=== PATIENT | male | born 1980 | race Caucasian/White ===

== ENCOUNTER 2018-11-12 15:46 | Observation (INO) ==
[2018-11-12] MEDS ORDERED: 0.9 % Sodium Chloride 1,000 ML IVC ONE (17:21)
[2018-11-12] MEDS ORDERED: Ondansetron 4 MG/2 ML VIAL IVP ONE (17:21)
[2018-11-12] MEDS ORDERED: Isovue-370 500 ML BOTTLE IVP ONE (17:23)
[2018-11-12] MEDS ORDERED: Pantoprazole 40 MG VIAL IVP ONE (17:24)
--- NOTE | 2018-11-12 17:29 | Emergency Department Note ---
Disposition Clinical Impression: Nausea and vomiting Qualifiers: Vomiting type: unspecified Vomiting Intractability: unspecified Qualified Code(s): R11.2 - Nausea with vomiting, unspecified Abdominal pain Qualifiers: Abdominal location: unspecified location Qualified Code(s): R10.9 - Unspecified abdominal pain Disposition: Admitted As Inpatient Condition: Fair Referrals: Rafael Emmanuel [Primary Care Provider] - Forms: ED Satisfaction Letter Time of Disposition: 19:26 Nausea/Vomiting/Diarrhea HPI - General Chief complaint: ED Nausea/Vomiting/Diarrhea Stated complaint: Nausea for months Time Seen by Provider: 11/12/18 16:59 Source: patient, family Mode of arrival: ambulatory Limitations: no limitations Nursing Notes Reviewed: Yes Vital Signs Reviewed: Yes - History of Present Illness HPI Narrative: 38-year-old male with a long-standing history of nausea vomiting and abdominal pain presents for evaluation for admission. Patient states he was sent in by the GI doctor for admission for anticipated upper endoscopy tomorrow. Patient states that he was having nausea vomiting now chronically for over 10 months. States it is worsened in the past month. States he has had unintentional weight loss where he is losing approximately a pound a week over the last few weeks. Patient states he feels nauseous all the time. Patient able to keep some foods and liquids down but however continues to experience nausea. Denies any fevers. Denies any chest pain or shortness of breath. States he was seeing pulmonary for a lung lesion with no current workup until he is able to get his nausea vomiting under control. Patient's also had night sweats. Patient has been see ing a nurse practitioner in [place] who felt that his symptoms are more related to anxiety and depression. Patient has not been given any antibiotics. Patient also notes some mucousy stool without blood. Diffuse abdominal cramping - Related Data Home Medications Medication Instructions Recorded Confirmed No Known Home Drugs 11/12/18 11/12/18 Allergies Allergy/AdvReac Type Severity Reaction Status Date / Time No Known Allergies Allergy Verified 11/12/18 15:59 All systems ED: reviewed and negative except as stated. Constitutional: Denies: fever Cardiovascular: Denies: chest pain Respiratory: Reports: cough Gastrointestinal: Reports: abdominal pain, nausea, vomiting, diarrhea Past Medical History - Past Medical History Source: patient Medical history: Reports: other Psychiatric history: Reports: no psych history - Social History Smoking Status: Current every day smoker Smokeless Tobacco Status: No Alcohol use: Reports: none Drug use: Reports: none Physical Exam - General Limitations: no limitations General appearance: alert, in no apparent distress, cachectic - Head Head exam: atraumatic, normocephalic, normal inspection - Eye Eye exam: Present: normal appearance - ENT ENT exam: normal exam, mucous membranes dry - Neck Neck exam: Present: normal inspection - Chest Chest inspection: Present: normal inspection - Respiratory Respiratory exam: Present: normal lung sounds bilaterally. Absent: respiratory distress - Cardiovascular Cardiovascular exam: Present: regular rate, normal rhythm - Abdominal Exam Abdominal exam: Present: soft, Non-Tender. Absent: guarding, rebound - Extremities Exam Extremities exam: Present: normal inspection. Absent: pedal edema - Back Exam Back exam: Present: normal inspection - Neurological Exam Neurological exam: Present: alert, oriented X3, CN II-XII intact - Skin Skin exam: Present: warm, dry, intact, normal color Course Course Narrative: Patient appears malnourished. Concerns for malignancy. Patient with CT of the abdomen pelvis with IV contrast. Patient will also get basic labs antiemetics and IV fluids. Patient will likely be admitted for malnutrition and intractable nausea vomiting. Vital Signs Temperature 98.6 F 11/12/18 15:58 Pulse Rate 73 11/12/18 15:58 Respiratory Rate 16 11/12/18 15:58 Blood Pressure 125/83 11/12/18 15:58 O2 Sat by Pulse Oximetry 95 11/12/18 15:58 Temperature 98.6 F 11/12/18 15:58 Pulse Rate 77 11/12/18 19:11 Respiratory Rate 20 11/12/18 19:11 Blood Pressure 122/80 11/12/18 19:11 O2 Sat by Pulse Oximetry 100 11/12/18 19:11 Oxygen Delivery Oxygen Delivery Room Air Nausea/Vomiting/Diarrhea - MDM Narrative Medical decision making narrative: Patient presented for concerns of nausea vomiting and malnourishment. Patient was sent in by GI office for admission for anticipated endoscopy tomorrow. I attempted to talk with the GI office however it was after hours and was unable to get a hold of them. I did speak with acute care surgery services who states that they would recommend admission with GI consult. Patient CT scan shows no acute abnormalities. Patient was treated with IV fluids and antiemetics. - Lab Data Lab results reviewed: Yes I reviewed the patient's lab results. Result diagrams: 11/12/18 17:35 11/12/18 17:35 Lab Results 11/12/18 11/12/18 11/12/18 Range/Units 17:35 17:35 18:30 WBC 15.4 H (4.3-11.1) K/mcL RBC 4.95 (4.19-5.50) M/mcL Hgb 15.7 (12.9-16.9) g/dL Hct 44.1 (37.5-50.1) % MCV 89.1 (83.0-100.0) fL MCH 31.7 (28.0-33.3) pg MCHC 35.6 H (31.6-35.5) g/dL RDW 13.4 (11.5-14.5) % Plt Count 361 (140-400) K/mcL MPV 9.4 (9.4-12.4) fL Immature Gran % 0.4 (0-4) % Seg Neutrophils % 64.4 % Lymphocytes % 27.4 % Monocytes % 6.2 % Eosinophils % 1.0 % Basophils % 0.6 % Neutrophils # 10.0 H (1.6-8.9) K/mcL Lymphocytes # 4.2 (0.6-4.6) K/mcL Monocytes # 1.0 (0.0-1.3) K/mcL Eosinophils # 0.2 (0.0-0.6) K/mcL Basophils # 0.1 (0.0-0.2) K/mcL Sodium 139 (136-145) mEq/L Potassium 4.1 (3.5-5.1) mEq/L Chloride 102 (98-107) mEq/L Carbon Dioxide 29 (23-29) mEq/L BUN 10 (6-20) mg/dL Creatinine 0.84 (0.70-1.30) mg/dL Est GFR ( Amer) > 60 (> 60) Est GFR (Non-Af Amer) > 60 (> 60) BUN/Creatinine Ratio 12 (6-26) Glucose 100 (70-105) mg/dL Calculated Osmolality 287 (280-300) Calcium 10.0 (8.6-10.3) mg/dL Phosphorus 3.7 (2.7-4.5) mg/dL Magnesium 1.9 (1.6-2.6) mg/dL Total Bilirubin 0.7 (0.3-1.0) mg/dL Direct Bilirubin 0.1 (0.0-0.2) mg/dL Indirect Bilirubin 0.6 (0.0-1.2) mg/dL AST 15 (13-39) Units/L ALT 14 (7-52) Units/L Alkaline Phosphatase 50 (34-104) Units/L Serum Total Protein 7.6 (6.4-8.9) g/dL Albumin 4.7 (3.5-5.7) g/dL Globulin 2.9 (2.4-3.5) g/dL Albumin/Globulin Ratio 1.6 (1.1-2.2) Lipase 23 (11-82) Units/L Urine Color Yellow (Yellow) Urine Clarity Clear (Clear) Urine pH 6.5 (5.0-8.0) pH Units Ur Specific [place] 1.014 (1.010-1.025) Urine Protein Negative (Neg-Trace) mg/dL Urine Glucose (UA) Normal (Normal) mg/dL Urine Ketones Negative (Negative) mg/dL Urine Blood Negative (Negative) Urine Nitrite Negative (Negative) Urine Bilirubin Negative (Negative) Urine Urobilinogen Normal (Normal) mg/dL Ur Leukocyte Esterase Negative (Negative) Ur Culture Indicated? NO (NO) - Radiology Data Radiology results reviewed: Yes I reviewed the patient's radiology results. Abdomen/Pelvis CT 11/12/18 17:23 IMPRESSION: No acute abdominopelvic findings. Specifically, normal distal esophagus, stomach and proximal bowel without evidence of obstruction or apparent wall thickening. RECOMMENDATIONS: If reported CT chest can be obtained, a comparison can be made. D/ / 11/12/2018 18:54:53 Wade Slater / wendy Interpreting Provider: Wade Slater - EKG Data EKG attestation: Yes I reviewed and interpreted this EKG. EKG shows normal: sinus rhythm Rate: normal Rhythm: NSR [place]/QRS: normal T wave inversions noted in: aVR, v1 Interpretation: no acute changes S.B.A.R. - S.B.A.R. Situation: Demographics Background: Presenting Complaint Assessment: Vital Signs, Course and respsone to treatment, Patient/Family Expectation Recommendation: Barrier(s) to disposition, Recommendation based on pending studies, treatments, or consults Anastacia Report Given to: Dr. Savannah Galaviz Repor Time: 19:24
--- NOTE | 2018-11-12 17:30 | Emergency Department Note ---
Disposition Clinical Impression: Nausea and vomiting, Abdominal pain Disposition: Admitted As Inpatient Condition: Fair General Adult HPI - General Chief complaint: ED Nausea/Vomiting/Diarrhea Stated complaint: Nausea for months Time Seen by Provider: 11/12/18 16:59 Source: patient, family Limitations: no limitations - History of Present Illness Pain Scale: 6 - Related Data Home Medications Medication Instructions Recorded Confirmed No Known Home Drugs 11/12/18 11/12/18 Allergies Allergy/AdvReac Type Severity Reaction Status Date / Time No Known Allergies Allergy Verified 11/12/18 15:59 Past Medical History - Past Medical History Medical history: Reports: other Psychiatric history: Reports: no psych history - Social History Smoking Status: Current every day smoker Smokeless Tobacco Status: No Alcohol use: Reports: none Drug use: Reports: none Physical Exam - General Limitations: no limitations General appearance: alert, in no apparent distress Course Vital Signs Temperature 98.6 F 11/12/18 15:58 Pulse Rate 73 11/12/18 15:58 Respiratory Rate 16 11/12/18 15:58 Blood Pressure 125/83 11/12/18 15:58 O2 Sat by Pulse Oximetry 95 11/12/18 15:58 Temperature 98.3 F 11/13/18 09:52 Pulse Rate 68 11/13/18 09:52 Respiratory Rate 18 11/13/18 09:52 Blood Pressure 108/68 11/13/18 09:52 O2 Sat by Pulse Oximetry 96 11/13/18 09:52 Oxygen Delivery Oxygen Delivery Room Air Medical Decision Making - Lab Data Result diagrams: 11/13/18 04:35 11/13/18 04:35 Lab Results 11/12/18 11/12/18 11/12/18 Range/Units 17:35 17:35 18:30 WBC 15.4 H (4.3-11.1) K/mcL RBC 4.95 (4.19-5.50) M/mcL Hgb 15.7 (12.9-16.9) g/dL Hct 44.1 (37.5-50.1) % MCV 89.1 (83.0-100.0) fL MCH 31.7 (28.0-33.3) pg MCHC 35.6 H (31.6-35.5) g/dL RDW 13.4 (11.5-14.5) % Plt Count 361 (140-400) K/mcL MPV 9.4 (9.4-12.4) fL Immature Gran % 0.4 (0-4) % Seg Neutrophils % 64.4 % Lymphocytes % 27.4 % Monocytes % 6.2 % Eosinophils % 1.0 % Basophils % 0.6 % Neutrophils # 10.0 H (1.6-8.9) K/mcL Lymphocytes # 4.2 (0.6-4.6) K/mcL Monocytes # 1.0 (0.0-1.3) K/mcL Eosinophils # 0.2 (0.0-0.6) K/mcL Basophils # 0.1 (0.0-0.2) K/mcL Sodium 139 (136-145) mEq/L Potassium 4.1 (3.5-5.1) mEq/L Chloride 102 (98-107) mEq/L Carbon Dioxide 29 (23-29) mEq/L BUN 10 (6-20) mg/dL Creatinine 0.84 (0.70-1.30) mg/dL Est GFR ( Amer) > 60 (> 60) Est GFR (Non-Af Amer) > 60 (> 60) BUN/Creatinine Ratio 12 (6-26) Glucose 100 (70-105) mg/dL Calculated Osmolality 287 (280-300) Calcium 10.0 (8.6-10.3) mg/dL Phosphorus 3.7 (2.7-4.5) mg/dL Magnesium 1.9 (1.6-2.6) mg/dL Total Bilirubin 0.7 (0.3-1.0) mg/dL Direct Bilirubin 0.1 (0.0-0.2) mg/dL Indirect Bilirubin 0.6 (0.0-1.2) mg/dL AST 15 (13-39) Units/L ALT 14 (7-52) Units/L Alkaline Phosphatase 50 (34-104) Units/L Serum Total Protein 7.6 (6.4-8.9) g/dL Albumin 4.7 (3.5-5.7) g/dL Globulin 2.9 (2.4-3.5) g/dL Albumin/Globulin Ratio 1.6 (1.1-2.2) Lipase 23 (11-82) Units/L Urine Color Yellow (Yellow) Urine Clarity Clear (Clear) Urine pH 6.5 (5.0-8.0) pH Units Ur Specific [place] 1.014 (1.010-1.025) Urine Protein Negative (Neg-Trace) mg/dL Urine Glucose (UA) Normal (Normal) mg/dL Urine Ketones Negative (Negative) mg/dL Urine Blood Negative (Negative) Urine Nitrite Negative (Negative) Urine Bilirubin Negative (Negative) Urine Urobilinogen Normal (Normal) mg/dL Ur Leukocyte Esterase Negative (Negative) Ur Culture Indicated? NO (NO) Attestation Statement - Attestation Attestation: I examined this patient and my medical decision-making was reviewed with the Resident Physician. I agree with the documented findings, disposition and treatment plan as described except to the extent set forth below. [id number] time provided Patient arrives with chronic symptoms. It was recommended by the GI specialist that the patient be admitted for planned endoscopy. He appears thin and somewhat frail appearing on exam.
[2018-11-12 17:52] LABS: Basophils # 0.1 K/mcL (0.0-0.2); Basophils % 0.6 %; Eosinophils # 0.2 K/mcL (0.0-0.6); Hematocrit 44.1 % (37.5-50.1); Hemoglobin 15.7 g/dL (12.9-16.9); Immature Granulocytes % 0.4 % (0-4); Lymphocytes # 4.2 K/mcL (0.6-4.6); Lymphocytes % 27.4 %; Mean Corpuscular HGB Conc 35.6 g/dL (31.6-35.5); Mean Corpuscular Hemoglobin 31.7 pg (28.0-33.3); Mean Corpuscular Volume 89.1 fL (83.0-100.0); Mean Platelet Volume 9.4 fL (9.4-12.4); Monocytes % 6.2 %; Platelet Count 361 K/mcL (140-400); Red Blood Count 4.95 M/mcL (4.19-5.50); Red Cell Distribution Width 13.4 % (11.5-14.5); Segmented Neutrophils % 64.4 %
[2018-11-12 18:12] LABS: Alanine Aminotransferase 14 Units/L (7-52); Albumin 4.7 g/dL (3.5-5.7); Albumin/Globulin Ratio 1.6 (1.1-2.2); Alkaline Phosphatase 50 Units/L (34-104); Aspartate Amino Transferase 15 Units/L (13-39); BUN/Creatinine Ratio 12 (6-26); Bilirubin,Direct 0.1 mg/dL (0.0-0.2); Bilirubin,Indirect 0.6 mg/dL (0.0-1.2); Bilirubin,Total 0.7 mg/dL (0.3-1.0); Blood Urea Nitrogen 10 mg/dL (6-20); Carbon Dioxide 29 mEq/L (23-29); Chloride 102 mEq/L (98-107); Globulin 2.9 g/dL (2.4-3.5); Glucose 100 mg/dL (70-105); Lipase 23 Units/L (11-82); Magnesium 1.9 mg/dL (1.6-2.6); Osmolality,Calculated 287 (280-300); Phosphorous 3.7 mg/dL (2.7-4.5); Potassium 4.1 mEq/L (3.5-5.1); Sodium 139 mEq/L (136-145); Total Protein 7.6 g/dL (6.4-8.9); eGFR For Non-African Americans > 60 (> 60)
[2018-11-12 19:00] LABS: Bilirubin,Urine Negative (Negative); Blood,Urine Negative (Negative); Clarity,Urine Clear (Clear); Color,Urine Yellow (Yellow); Glucose,Urine (UA) Normal (Normal); Ketones,Urine Negative (Negative); Leukocyte Esterase,Urine Negative (Negative); Nitrite,Urine Negative (Negative); PH,Urine 6.5 pH Units (5.0-8.0); Protein,Urine Negative (Neg-Trace); Specific Gravity,Urine 1.014 (1.010-1.025); Urobilinogen,Urine Normal (Normal)
[2018-11-12] MEDS ORDERED: D5% in 0.45% NACL 1,000 ML IVC SCH (19:30)
[2018-11-12] MEDS ORDERED: Naloxone 0.4 MG/ML INJ IVP PRN (20:18)
[2018-11-12] MEDS ORDERED: Ondansetron 4 MG/2 ML VIAL IVP PRN (20:18)
[2018-11-12 22:18] LABS: Amphetamine Screen,Urine Negative ng/mL (Cutoff=1000); Barbiturate Screen,Urine Negative ng/mL (Cutoff=200); Benzodiazepines Screen,Urine Negative ng/mL (Cutoff=200); Cannabinoid Screen,Urine Positive ng/mL (Cutoff = 50); Cocaine Screen,Urine Negative ng/mL (Cutoff= 300); Opiate Screen,Urine Negative ng/mL (Cutoff=300); Phencyclidine Screen,Urine Negative ng/mL (Cutoff=25)
--- NOTE | 2018-11-13 03:39 | Internal Med History&Physical ---
Date of Encounter: 11/13/18 Time of Encounter: 03:31 Internal Medicine - H&P: HPI Chief complaint: Intractable nausea History of present illness: Mr. CHAVEZ is a 38 year old male with no significant past medical history who was referred to the ED by Dr. Garcia with gastroenterology due to chronic intractable nausea and plan for upper endoscopy. Patient reports that his nausea has been ongoing for the past 10 months. Reports decreased appetite and states that he has been losing 1 pound a week. Reports feeling nauseous all the time. He is able to keep food down when he forces himself to eat. Reports no symptoms of epigastric pain, early satiety, bloating, acid reflux, or diarrhea. Patient currently smokes a pack and half a day. Denies any marijuana use. Not currently on any medications. On arrival patient was found to be afebrile, hemodynamically stable. Labs were only notable for a leukocytosis of 15.4. Patient states that he always has an elevated white blood cell count when they check it. Chemistry was otherwise normal. U tox was obtained which was positive for marijuana. UA was otherwise normal. Will prep patient for possible upper endoscopy in the morning. Past Med Surg Social Fam HX - Past Medical History Medical history: other Additional medical history: Pulmonary nodule Psychiatric history: no psych history - Past Surgical History Additional surgical history: dental procedure - Social History Smoking Status: Current every day smoker Packs per day: 2 Smokeless Tobacco Status: No Alcohol use: none Drug use: none - Additional Family History Additional family history: Noncontributory Internal Medicine - H&P: Meds No Known Home Drugs 11/12/18 [History] Allergy/AdvReac Type Severity Reaction Status Date / Time No Known Allergies Allergy Verified 11/12/18 15:59 All Systems PM: A 10-system review of systems was performed and is negative for pertinent findings except as documented above in the HPI. - Constitutional Constitutional: no chills, no fever(s), no night sweats - EENT Eyes: no change in vision, no discharge, no pain, no photophobia Ears: no ear discharge, no ear pain, no tinnitus Nose, mouth and throat: no dysphagia, no nasal discharge, no neck pain, no sore throat - Cardiovascular Cardiovascular ROS IM: no chest pain, no diaphoresis, no dyspnea, no lightheadedness, no palpitations, no syncope - Respiratory Respiratory: no cough, no dyspnea, no wheezing, no excessive phlegm production - Gastrointestinal Gastrointestinal: no abdominal pain, no diarrhea, no hematemesis, no hematochezia, no melena, no nausea, no vomiting - Musculoskeletal Musculoskeletal ROS IM: no numbness, no tingling - Integumentary Integumentary IM: no rash, no unusual bruising - Neurological Neurological ROS: no confusion, no convulsions, no focal weakness, no numbness, no tingling, no tremor(s) - Hematologic/Lymphatic Hematologic/Lymphatic: no easy bruising - Constitutional Vitals: Temp Pulse Resp BP Pulse Ox 98.5 F 66 14 105/66 96 11/13/18 00:51 11/13/18 00:51 11/13/18 00:51 11/13/18 00:51 11/13/18 00:51 Exam: General: Alert and oriented 3 lying in bed in no acute distress Skin:Normal color, no rash, no lesions. HEENT:EOM, pupils equal, round and reactive. Cardiovascular:Normal S1 & S2, no rubs, murmurs or gallops. No JVD. Pulse regular. Lungs:Normal breath sounds, no wheezes or crackles. Abdomen:Soft, non-tender, no rigidity. Extremities:No deformity, no edema or tenderness, no joint swelling or clubbing. Neurological:Normal cognition and motor skills. Pulses:Carotid and radial pulses normal +2. Rest of the physical exam is non contributory Internal Med - H&P Results - Labs CBC & Chem 7: 11/13/18 04:35 11/13/18 04:35 Labs: Short CBC 11/12/18 Range/Units 17:35 WBC 15.4 H (4.3-11.1) K/mcL Hgb 15.7 (12.9-16.9) g/dL Hct 44.1 (37.5-50.1) % Plt Count 361 (140-400) K/mcL Neutrophils # 10.0 H (1.6-8.9) K/mcL BMP 11/12/18 17:35 Sodium 139 Potassium 4.1 Chloride 102 Carbon Dioxide 29 BUN 10 Creatinine 0.84 Glucose 100 Calcium 10.0 Liver Function 11/12/18 Range/Units 17:35 Total Bilirubin 0.7 (0.3-1.0) mg/dL Direct Bilirubin 0.1 (0.0-0.2) mg/dL AST 15 (13-39) Units/L ALT 14 (7-52) Units/L Alkaline Phosphatase 50 (34-104) Units/L Albumin 4.7 (3.5-5.7) g/dL Urine 11/12/18 Range/Units 18:30 Urine Color Yellow (Yellow) Urine Clarity Clear (Clear) Urine pH 6.5 (5.0-8.0) pH Units Ur Specific [place] 1.014 (1.010-1.025) Urine Protein Negative (Neg-Trace) mg/dL Urine Glucose (UA) Normal (Normal) mg/dL - Impressions ITS Impressions Abdomen/Pelvis CT 11/12/18 17:23 IMPRESSION: No acute abdominopelvic findings. Specifically, normal distal esophagus, stomach and proximal bowel without evidence of obstruction or apparent wall thickening. RECOMMENDATIONS: If reported CT chest can be obtained, a comparison can be made. D/ / 11/12/2018 18:54:53 Wade Slater / wendy Interpreting Provider: Wade Slater - Assessment and Plan (1) Nausea Current Visit: Yes Status: Acute Assessment and plan: Patient presents with 10 month history of intractable nausea without vomiting associated with loss of appetite and decreased by mouth intake. Referred here by Dr. Garcia for planned upper endoscopy. Patient denies any abdominal pain per se. No reports of acid reflux to suggest GERD. Denies early satiety, bloating, or diarrhea suggestive of a gastric motility pathology. Patient denied marijuana use however you toxicology came back positive for marijuana. Nonetheless less likely to be cannabinoid hyperemesis syndrome given the absence f cyclical vomiting. -We will keep patient NPO -Supportive fluids -Protonix -Antiemetics PRN for nausea -Plan for upper endoscopy in the morning (2) Tobacco use Current Visit: Yes Status: Acute Assessment and plan: Patient has been smoking a pack and a half of cigarettes for the past 17 years. Also patient on smoking cessation.. (3) Neutrophilic leukocytosis Current Visit: Yes Status: Acute Assessment and plan: Patient presents with a neutrophilic leukocytosis of 15.4. No evidence of an infection based on history and clinical findings. Patient states that his WBC is always high when they check it. We will monitor for now.. (4) DVT prophylaxis Current Visit: Yes Status: Acute Assessment and plan: The cutaneous heparin - Time Spent With Patient Total time spent is greater than 50% in coordination of care (as documented) at patient's floor/unit and/or counseling patient:
[2018-11-13 04:58] LABS: Basophils # 0.1 K/mcL (0.0-0.2); Basophils % 0.8 %; Eosinophils # 0.2 K/mcL (0.0-0.6); Immature Granulocytes % 0.3 % (0-4); Lymphocytes # 3.7 K/mcL (0.6-4.6); Lymphocytes % 31.3 %; Mean Corpuscular HGB Conc 33.7 g/dL (31.6-35.5); Mean Corpuscular Hemoglobin 30.4 pg (28.0-33.3); Mean Corpuscular Volume 90.3 fL (83.0-100.0); Mean Platelet Volume 9.3 fL (9.4-12.4); Monocytes # 0.9 K/mcL (0.0-1.3); Monocytes % 7.4 %; Neutrophils # 6.8 K/mcL (1.6-8.9); Platelet Count 318 K/mcL (140-400); Red Blood Count 4.54 M/mcL (4.19-5.50); Red Cell Distribution Width 13.6 % (11.5-14.5); Segmented Neutrophils % 58.2 %
[2018-11-13 05:00] LABS: Hemoglobin 13.8 g/dL (12.9-16.9)
[2018-11-13 05:10] LABS: INR 1.1; Prothrombin Time 12.2 Seconds (9.4-12.1)
[2018-11-13 05:13] LABS: Activated Partial Thrombo Time 38.6 Seconds (26.0-36.0)
[2018-11-13 05:18] LABS: Alanine Aminotransferase 11 Units/L (7-52); Albumin 3.8 g/dL (3.5-5.7); Albumin/Globulin Ratio 1.5 (1.1-2.2); Alkaline Phosphatase 42 Units/L (34-104); Aspartate Amino Transferase 13 Units/L (13-39); BUN/Creatinine Ratio 8 (6-26); Bilirubin,Total 0.8 mg/dL (0.3-1.0); Blood Urea Nitrogen 7 mg/dL (6-20); Calcium 9.3 mg/dL (8.6-10.3); Carbon Dioxide 29 mEq/L (23-29); Chloride 109 mEq/L (98-107); Globulin 2.6 g/dL (2.4-3.5); Glucose 110 mg/dL (70-105); Osmolality,Calculated 287 (280-300); Phosphorous 3.5 mg/dL (2.7-4.5); Potassium 4.1 mEq/L (3.5-5.1); Sodium 139 mEq/L (136-145); Total Protein 6.4 g/dL (6.4-8.9); eGFR For Non-African Americans > 60 (> 60)
[2018-11-13] MEDS ORDERED: Pantoprazole 40 MG VIAL IVP SCH (06:00)
[2018-11-13] MEDS ORDERED: *HR* Heparin 5,000 UNIT/ML VIAL SQ SCH (06:00)
[2018-11-13 06:49] LABS: Estimated Average Glucose 120 mg/dl; Hemoglobin A1C 5.8 %
[2018-11-13] MEDS ORDERED: Ondansetron 4 MG/2 ML VIAL IVP SCH (08:09)
[2018-11-13] MEDS ORDERED: Nicotine 21 MG PATCH.TD24 TD SCH (09:00)
--- NOTE | 2018-11-13 11:00 | Event Note ---
Date of Encounter: 11/13/18 Time of Encounter: 09:15 H&P reviewed. Patient with no significant past history other than marijuana use was admitted for chronic intractable nausea. She is physically vomiting syndrome associated with marijuana but as per GI recommendation, rule out anatomical pathology with EGD today. Will administer zofran scheduled to control his nausea. If his symptoms remain relatively controlled on scheduled zofran and EGD findings unremarkable, he will likely be discharged home tomorrow.
--- NOTE | 2018-11-13 11:57 | Gastroenterology Consult Note ---
Date of Encounter: 11/15/18 Time of Encounter: 09:15 - Assessment and plan (1) Nausea and vomiting Status: Acute Assessment and plan: Will check EGD to rule out esophagitis, PUD, gastritis and duodenitis. Continue PPI. Pt should abstain from any marijuana use. Qualifiers: Vomiting type: cyclical vomiting Vomiting Intractability: non-intractable Qualified Code(s): G43.A0 - Cyclical vomiting, not intractable (2) Abdominal pain Status: Acute Qualifiers: Abdominal location: generalized Qualified Code(s): R10.84 - Generalized abdominal pain - Time Spent With Patient Total time spent is greater than 50% in coordination of care (as documented) at patient's floor/unit and/or counseling patient: GI History of Present Illness - Data of Consult Patient: known to practice within the last 3 years Consult date: 11/13/18 Requesting Physician: Oleg Dickens MD - Consult Narrative Reason for consult: nausea and weight loss History of present illness: Mr. CHAVEZ is a 38 year old male with no significant past medical history who was seen by Dr. Garcia in the office yesterday with chronic intractable nausea. He states has been ongoing for 10 months. He reports very poor appetite and has nausea anytime he eats. He reports occasional diarrhea, denies constipation. He reports increased belching and acid reflux. Reports decreased appetite and states that he has been losing 1 pound a week. Reports feeling nauseous all the time. He is able to keep food down when he forces himself to eat. He denies epigastric pain, early satiety, bloating. Patient currently smokes a pack and half a day. Denies any marijuana use. Not currently on any medications. On arrival patient was found to be afebrile, hemodynamically stable. Labs were only notable for a leukocytosis of 15.4. Patient states that he always has an elevated white blood cell count when they check it. Chemistry was otherwise normal. U tox was obtained which was positive for marijuana. UA was otherwise normal. NSAIDS: none Anticoagulants: heparin SQ EGD and colonoscopy: Denies Past Med Surg Social Fam HX - Past Medical History Medical history: other Additional medical history: Pulmonary nodule Psychiatric history: no psych history - Past Surgical History Additional surgical history: dental procedure - Social History Smoking Status: Current every day smoker Packs per day: 2 Smokeless Tobacco Status: No Alcohol use: none Drug use: none Review of Systems: GI: as per [facility] GENERAL: denies fever, has some chills EYES: denies yellow discoloration ENT: denies pain with swallowing or difficulty swallowing CARDIO: denies chest pain, palpitations RESP: No Shortness of breath with exertion : denies change in color of urine NEURO: weakness HEME: Denies any bruising MS: denies joint pain, joint swelling or back pain. DERM: denies rash or itching PSYCH: Denies history of anxiety or depression - Constitutional Vitals: Temp Pulse Resp BP Pulse Ox 98.3 F 68 18 108/68 96 11/13/18 09:52 11/13/18 09:52 11/13/18 09:52 11/13/18 09:52 11/13/18 09:52 Exam: CONSTITUTIONAL:alert, no acute distress.HEAD:normocephalic, bitemporal wasting noted.EYES:no jaundice.NECK:no obvious swelling.HEART:regular rate and rhythm, no murmurs.LUNGS:bilateral good air entry.ABDOMEN:non distended, soft, tender epigastric area, no masses pulpable, no organomegaly.RECTAL EXAM:Deferred.EXTREMITIES:no clubbing, cyanosis or edema.SKIN: pallor notedno stigmata of chronic liver disease.NEUROLOGIC:no obvious focal defect. Results - Labs CBC & Chem 7: 11/13/18 04:35 11/13/18 04:35 Labs: Last Result 11/13/18 04:35 Calcium 9.3 Entire Visit 11/13/18 11/13/18 11/13/18 04:35 04:35 04:35 Hgb 13.8 D Hct 41.0 PT 12.2 H Total Bilirubin 0.8 AST 13 ALT 11 - ABG ABG results: PT/INR, D-dimer PT 12.2 Seconds (9.4-12.1) H 11/13/18 04:35 - Impressions Impressions Abdomen/Pelvis CT 11/12/18 17:23 IMPRESSION: No acute abdominopelvic findings. Specifically, normal distal esophagus, stomach and proximal bowel without evidence of obstruction or apparent wall thickening. RECOMMENDATIONS: If reported CT chest can be obtained, a comparison can be made. D/ /12/2018 18:54:53 Wade Slater / wendy Interpreting Provider: Wade Slater Consult Discharge Plan - Plan Instructions: Upper Gastrointestinal Endoscopy (DC) Referrals: Zach Garcia MD [Partnered Physician] - (Web request entered. Office will call with date and time of appointment.) Rafael Emmanuel [Primary Care Provider] - (Web request entered. Office will call with date and time of appointment.) Prescriptions: Nicotine Patch [Nicoderm] 21 mg TD DAILY #21 patch.td24 Omeprazole [PriLOSEC] 40 mg PO DAILY #30 cap Ondansetron ODT [Zofran ODT] 4 mg SL Q6HR PRN #20 tab.rapdis PRN Reason: Nausea
[2018-11-13] MEDS ORDERED: *HR* Propofol 200 MG/20 ML VIAL IVP ONE (13:24)
--- NOTE | 2018-11-13 13:34 | Anesthesia Evaluation PreOp ---
Date of Encounter: 11/13/18 Time of Encounter: 14:18 - Past History Planned Operation: EGD Cardiac History: Denies any Significant Hx Pulmonary History: Smoker (25 years), Other (pulmonary nodules) [employer] History: Denies Any Significant HX Other Medical History: Denies Any Significant HX Anesthesia History: Past Anesthesia (no prior GA) Alcohol Use: none Drug use: none Medications and Allergies No Known Home Drugs 11/12/18 [History] Allergy/AdvReac Type Severity Reaction Status Date / Time No Known Allergies Allergy Verified 11/12/18 15:59 - Meds/Allergy Pre-op Review Medications Reviewed: Yes Allergies Reviewed: Yes Beta Blockers on Current Med List: No Anesthesia Results - Labs 11/13/18 04:35 11/13/18 04:35 - Imaging EKG: report reviewed (11/12/2018 sinus rhythm) Anesthesia Exam Vital Signs/O2 Sat, Most Current Temp Pulse Resp BP Pulse Ox 98.3 F 68 18 108/68 96 11/13/18 09:52 11/13/18 09:52 11/13/18 09:52 11/13/18 09:52 11/13/18 09:52 Height: 5'9''/1.75m Weight: 129 lbs/58.8 kg NPO (# of Hours): 8 Pain Scale: 0 Pain Scale Used: Numeric (1 - 10) - HEENT Pupil (Motor): EOMI Mallampati: II Teeth: Edentulous Denture Type: Upper: Complete, Lower: Complete Oral Opening: Greater than 3 - [employer] LOC: Oriented [employer] Motor: Normal RUE, Normal LUE, Normal RLE, Normal LLE, Normal Face [employer] Sensory: Normal: RUE, LUE, RLE, LLE, Face - Cardiac Rhythm: Regular Murmur: None - Pulmonary Breath Sounds: bilateral Clear Respiratory Effort: Symmetrical Anesthesia Assess/Plan ASA Score: 2 Level of consciousness: Cooperative, Oriented, Tranquil Anesthetic Plan: MAC Monitoring Plan: Standard Monitors
--- NOTE | 2018-11-13 14:08 | Electrocardiograph Report ---
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
[2018-11-13 14:26] VITALS: BP 145/76
--- NOTE | 2018-11-13 16:16 | Discharge Summary ---
- NOTES TO OUTPATIENT PROVIDER Notes to Outpatient Provider: Follow-up with PCP and GI Orders not resulted at time of discharge: Pending orders 11/12/18 17:35 Tissue Transglutaminase Ab,IgA Stat 11/13/18 14:48 Surgical Pathology [PTH] Routine 11/14/18 04:00 Basic Metabolic Panel AM 0400 Complete Blood Count [HEME] AM 0400 Date of Encounter: 11/13/18 Time of Encounter: 16:00 - Discharge Diagnosis (1) Nausea Priority: Primary Status: Acute (2) DVT prophylaxis Priority: Secondary Status: Acute (3) Tobacco use Priority: Secondary Status: Acute (4) Neutrophilic leukocytosis Priority: Secondary Status: Acute Hospital course: Mr. CHAVEZ is a 38 year old male with history of marijuana abuse was admitted for intractable nausea/vomiting. Was admitted per GI recommendation and underwent EGD on 11/13 showed mild Schatzki ring which was dilated and biopsied. He will be discharged home on PPI with GI follow up outpatient. Discharge discussed with: patient, nurse, [employer] consultant - Time Spent with Patient Total time spent providing and/or coordinating discharge services: 25 mins - Discharge Medications Prescriptions: New Nicotine Patch [Nicoderm] 21 mg TD DAILY #21 patch.td24 Ondansetron ODT [Zofran ODT] 4 mg SL Q6HR PRN #20 tab.rapdis PRN Reason: Nausea Omeprazole [PriLOSEC] 40 mg PO DAILY #30 cap Home Medications: Nicotine Patch [Nicoderm] 21 mg TD DAILY #21 patch.td24 11/13/18 [Rx] Omeprazole [PriLOSEC] 40 mg PO DAILY #30 cap 11/13/18 [Rx] Ondansetron ODT [Zofran ODT] 4 mg SL Q6HR PRN #20 tab.rapdis 11/13/18 [Rx] Allergies/Adverse Reactions: Allergy/AdvReac Type Severity Reaction Status Date / Time No Known Allergies Allergy Verified 11/12/18 15:59 Date of admission: 11/12/18 19:39 Primary care physician: Rafael Emmanuel Consults: 11/12/18 19:23 Consult to Gastroenterology [CONS] Stat Consulting Provider: Gastroenterology Polina Reason for Consult: N/V patient states that he was seen in for admission and an upper endoscopy Call Completed: No 11/13/18 01:35 Consult to Nutrition [CONS] Routine Comment: mst score Consulting Provider: NUTRITION Reason for Dietary Consult: MST Score - Constitutional Vitals: Temp Pulse Resp BP Pulse Ox 98.3 F 84 16 145/76 99 11/13/18 09:52 11/13/18 14:25 11/13/18 14:25 11/13/18 14:25 11/13/18 14:25 Exam: General: Alert and oriented, not in acute distress. Cardiovascular:Normal S1 & S2, No JVD. Pulse regular. Lungs: clear to auscultation, no wheezes/rales Abdomen:Soft, non-tender, no rigidity. Extremities:No deformity or swelling Neurological:Normal cognition and motor skills. Non-focal - Patient Status Disposition: Home, Self-Care Condition: Fair Functional capacity at discharge: independent ambulation Overall status at discharge: patient is progressing back to baseline - Discharge Instructions Follow Up With: Rafael Emmanuel [Primary Care Provider] - Zach Garcia MD [Partnered Physician] - - Diet and Activity Activity: resume usual activities as tolerated Diet: advance to your usual diet
[2018-11-15 11:24] LABS: Tissue Transglutaminase IgA 1 U/mL (0-3)
== END 2018-11-13 18:07 | disposition home or self-care (01) ==
LOC: EMEROOARM 15:46 → 3ANU 15:46 → SUATTDRO 19:39 → 3ANU 20:25
PROVIDERS: ADMIT Internal Medicine; ATTEND Internal Medicine
PROC: ENDOEDS (2018-11-13 17:30)